=== PATIENT | male | born 2000 | race Hispanic/Latino ===

== ENCOUNTER 2023-08-01 09:47 | Emergency (ER) | payer SELFPAY ==
[2023-08-01 09:59] VITALS: BP 144/85
[2023-08-01 10:24] LABS: % Basophils 0.4 % (0-2); % Eosinophils 3.4 % (0-6); % Immature Granulocytes 0.3 % (0-0.5); % Lymphocytes 21.8 % (20.5-51.1); % Monocytes 3.9 % (1.7-9.3); % Neutrophils 70.2 % (42.2-75.2); Absolute Eosinophils 0.3 10^3/uL (0-0.7); Absolute Lymphocytes 2.2 10^3/uL (1.2-3.4); Absolute Monocytes 0.4 10^3/uL (0.1-0.6); Absolute Neutrophils 7.1 10^3/uL (1.4-6.5); Hematocrit 42.3 % (39.0-52.0); Hemoglobin 15.2 g/dL (13.0-18.0); Mean Corp Hgb Conc. 35.9 g/dL (33.0-37.0); Mean Corpuscular Hgb 30.7 pg (27.0-31.0); Mean Corpuscular Volume 85.5 fL (80.0-94.0); Mean Platelet Volume 9.4 fL (7.4-10.4); Nucleated Red Blood Cells % 0 % (-); Platelet Count 229 10^3/uL (130-400); Red Blood Cell Count 4.95 10^6/uL (4.70-6.10); White Blood Cell Count 10.1 10^3/uL (4.8-10.8)
--- NOTE | 2023-08-01 10:35 | ED.GENMED ---
History of Present Illness
General
Chief Complaint: Abdominal Symptoms
Source: patient
Time Seen by Provider: 08/01/23 10:27
Travel History
Have you had any contact with someone who has COVID-19?: No
Do you have any symptoms of coronavirus? Fever > 100 degrees, chills, cough, shortness of breath, sore throat, loss of taste or smell, muscle aches, or headache?: No
History of Present Illness
History of Present Illness:
23-year-old male with past medical history of what is believed to be H. pylori, recently completed antibiotics, presenting back to the emergency department for evaluation of abdominal discomfort, nausea/vomiting and diarrhea that he states is
similar to multiple previous episodes with symptoms feeling similar to prior to starting biotic regimen patient denies any fevers, chills, rigors, urinary symptoms chest pain, shortness of breath or any other concerns. No known sick contacts or
recent travel. Social history and family history were both noncontributory. Patient states he did take something at home prior to arrival but is unsure as to what medication this was.
Past History
Past History
ED Past Medical History: Other (H. pylori)
ED Past Surgical History: None
Social History
Tobacco: Non-smoker
Alcohol: None
Drug: None
Personal: Single
Living: with family
Employment: Employed
Review of Systems
Review of Systems
All Other Systems: ROS reviewed and negative except as documented in HPI and ROS
Phy Exam
Physical Exam
Physical Exam:
GENERAL: Alert , retching with small bilious emesis
EYE: clear conjunctiva b/l
HEAD: NCAT
ENT: o/p clr, mmm.
CARDIAC: Regular rate and rhythm .
LUNGS: Clear breath sounds bilaterally, no acute respiratory distress, no wheezes/rales/rhonchi
ABDOMEN: Soft, diffuse generalized tenderness, no r/g, no cvat, negative Mora sign, no tenderness at McBurney's point
NEUROLOGICAL: Alert and oriented
SKIN: Warm and dry, skin intact.
MUSCULOSKELETAL: well perfused.
PSYCH: Normal and appropriate interaction.
Scores
Heart Failure Risk
Heart Failure Risk Score: Not Applicable
Heart Score for Chest Pain Patients
STEMI patient?: Not applicable
Withdrawal Assessment of Alcohol
Withdrawal Assessment Completed?: Not applicable
Course
Orders/Labs/Results
Orders:
Orders
08/01/23 10:05
Complete Blood Count/With Diff Urgent
Comprehensive Metabolic Panel Urgent
Lipase Urgent
08/01/23 10:29
Ondansetron Injectable [Zofran] 4 mg .ROUTE .STK-MED ONE
08/01/23 10:32
0.9% Sodium Chloride 1000 ml [Nss] 1,000 ml IV BOLUS
Famotidine [Pepcid] 20 mg IV NOW STA
Ketorolac [Toradol] 30 mg IV NOW STA
Ondansetron Injectable [Zofran] 4 mg IV NOW STA
08/01/23 11:11
Mag Hydrox/Al Hydrox/Simeth [Maalox] 30 ml Phenobarb/Hyoscy/Atropine/Scop [] 10 ml Viscous Lidocaine 2% [Xylocaine Viscous Cup] 10 ml PO NOW
08/01/23 11:12
Mag Hydrox/Al Hydrox/Simeth [Maalox] 30 ml .ROUTE .STK-MED ONE
Phenobarb/Hyoscy/Atropine/Scop [] 10 ml .ROUTE .STK-MED ONE
Viscous Lidocaine 2% [Xylocaine Viscous Cup] 15 ml .ROUTE .STK-MED ONE
Abnormal Lab Results
08/01/23
10:05
Absolute Neuts (auto) 7.1 H 10^3/uL
(1.4-6.5)
Glucose 117 H mg/dl
(70-99)
AST 61 H U/L
(17-59)
ALT 90 H U/L
(0-50)
08/01/23 10:05
08/01/23 10:05
Vital Signs
Initial and Last Documented VS:
Initial Vital Signs
Temp Pulse Resp BP Pulse Ox
97.9 F 68 18 144/85 99
08/01/23 09:59 08/01/23 09:59 08/01/23 09:59 08/01/23 09:59 08/01/23 09:59
Last Documented Vital Signs
Temp Pulse Resp BP Pulse Ox
97.9 F 68 18 114/50 97
08/01/23 09:59 08/01/23 09:59 08/01/23 09:59 08/01/23 12:00 08/01/23 12:15
MDM/Problems Addressed
Differential Diagnosis Includes:
GERD/gastritis, pancreatitis, gastroenteritis, less concern for acute surgical abdomen such as cholecystitis or appendicitis
MDM/Problems Addressed:
23-year-old male presenting emergency department for evaluation of nausea vomiting and diarrhea combined with abdominal discomfort with symptoms feeling similar to when patient was previously treated for H. pylori. He appears uncomfortable on exam
with retching and small bilious emesis. No focal tenderness on the abdomen during exam. Labs have been initiated in triage. Will treat with Zofran, Toradol, Pepcid and fluids. Reassessment following. Despite patient's seemingly chronic GI
symptoms he has not had any abdominal imaging at this facility and close to 9 years with last being in November 2014. If patient does not show improvement with medications will have low threshold to perform CT scan.
*Pulse Oximetry
Patient hypoxic: no
*Critical Care Note
Total Time (30-74mins, 75-104mins- exclusive of procedures): Not Applicable
Data Reviewed
Review of Other/Old Records Reveals: Records
Comment
Comment:
On first reevaluation patient does note improvement of symptoms however still some slight discomfort. Will treat with a GI cocktail and reassess following.
On second reevaluation patient notes symptoms are fully resolved. He was able to tolerate p.o. No further nausea or vomiting in the ER. Stable for discharge home. Encouraged close follow-up for retesting of H. pylori given recent treatment.
Return precautions discussed.
ED Attending Note
-
Portions of this chart may have been created with voice recognition software.� Occasional wrong word or��sound alike� substitutions may have occurred due to the inherent limitations of voice recognition software.
Discharge Plan
Departure
Patient Disposition: Home (Routine Discharge)
Date of Disposition: 08/01/23
Time of Disposition: 12:41
Patient with high blood pressure during this ER visit?: No
Discharge Problem:
Nausea and vomiting
Instructions: Nausea and Vomiting, Adult (DC)
Prescriptions:
New
ondansetron 4 mg Tablet,Disintegrating
4 mg PO TIDPRN PRN (Reason: nausea/vomiting) Qty: 8 0RF
No Action
polyethylene glycol 3350 [Miralax] 119 GM powder
119 gm PO PRN PRN (Reason: constipation)
alum-mag hydroxide-simeth [Maalox Advanced] 200-200-20 mg/5 mL suspension
20 ml PO Q4H PRN (Reason: dyspepsia) Qty: 1000 0RF
famotidine [Acid [employer] Analysis Manager (famotidine)] 20 mg tablet
20 mg PO BID Qty: 20 0RF
Referrals:
Fabio Mcbride PA [Family Provider] -
Stand Alone Forms: Return to Work
Interventions
Interventions:
*Risk Screen - Suicide Last Done: 08/01/23 09:59
*General Assessment Last Done: 08/01/23 09:59
*Neglect/Abuse Screening Last Done: 08/01/23 09:59
ED- Fall Risk Assessment Last Done: 08/01/23 10:57
*ED COVID-19 Vaccine History Last Done: 08/01/23 09:59
VV-Nrqtyd-Ygyccfnixf Assessment Last Done: 08/01/23 10:43
[2023-08-01 10:36] VITALS: BP 130/77
[2023-08-01 10:37] LABS: ALT (SGPT) 90 U/L (0-50); AST (SGOT) 61 U/L (17-59); Alkaline Phosphatase 123 U/L (38-126); Blood Urea Nitrogen 19 mg/dl (9-20); Calcium 9.1 mg/dl (8.4-10.2); Carbon Dioxide 26 mmol/L (22-30); Chloride 104 mmol/L (98-107); Glucose 117 mg/dl (70-99); Lipase 96 U/L (23-300); Potassium 4.4 mmol/L (3.5-5.1); Sodium 137 mmol/L (135-145); Total Bilirubin 0.8 mg/dl (0.2-1.3); Total Protein 7.8 g/dl (6.3-8.2); eGFR > 60.00
[2023-08-01] MEDS: ZOFRAN 4 MG IV (10:41)
[2023-08-01] MEDS: TORADOL 30 MG IV (10:41)
[2023-08-01] MEDS: NSS 1000 IV (10:42)
[2023-08-01] MEDS: PEPCID 20 MG IV (10:42)
[2023-08-01 11:00] VITALS: BP 127/77
[2023-08-01] MEDS: MAALOX 50 PO (11:14)
[2023-08-01 12:00] VITALS: BP 114/50
== END 2023-08-01 13:38 | disposition home or self-care (01) ==
LOC: EMR 09:47
PROVIDERS: Emergency Medicine; EMERGENCY PHYSICIAN Emergency Medicine; FAMILY PHYSICIAN Physician Assistant
DX: R11.2 Nausea with vomiting, unspecified (principal); R19.7 Diarrhea, unspecified; R10.9 Unspecified abdominal pain
CPT/HCPCS: 99284; 96374; 96375 ×2; 96361; 80053; 83690; 85025

== ENCOUNTER → 2024-03-11 06:21 | Day surgery (SDC) | payer OTHER, SELFPAY | LOC: GI 06:21 | PROVIDERS: ATTENDING PHYSICIAN Internal Medicine Gastroenterology | DX: R13.10 Dysphagia, unspecified (principal); R12 Heartburn; R14.0 Abdominal distension (gaseous); K29.50 Unspecified chronic gastritis without bleeding | CPT/HCPCS: 43239; 88305; 88342 ==